=== PATIENT | female | born 1955 | race Caucasian/White ===

== ENCOUNTER 2023-03-17 05:56 | Day surgery (SDC) | payer OTHER ==
[2023-03-16 08:54] LABS: Absolute Lymphocytes (CBC) 0.9 K/uL (0.7-4.9); Hematocrit 37.3 % (36.0-45.0); Lymphocytes % 13.7 % (15.3-44.8); MCV 93.2 fL (80-100); MPV 8.3 fL (7.6-11.3)
--- NOTE | 2023-03-16 08:56 | RAD REPORT ---
EXAM DESCRIPTION: Reji Sofia (2 Views)03/16/2023 8:16 am CLINICAL HISTORY: Preop for lipoma removal COMPARISON: None FINDINGS: The lungs appear clear of acute infiltrate. The heart is normal size IMPRESSION: No acute abnormalities displayed
[2023-03-16 09:11] LABS: Potassium 3.9 mEq/L (3.5-5.1)
--- NOTE | 2023-03-16 14:36 | EKG ---
Test Date: 2023-03-16 Test Time: 08:00:08 Apartment Assistant Manager: SOCORRO MEASUREMENT RESULTS: Intervals: Rate: 72 NV: 160 QRSD: 78 QT: 412 QTc: 451 [place]: P: 79 NV: 160 QRS: 84 T: 91 INTERPRETIVE STATEMENTS: Normal sinus rhythm Nonspecific T wave abnormality Abnormal ECG No previous ECG available for comparison Electronically Signed On 03-16-23 14:35:43 CDT by Vinod Lanza
[2023-03-17] MEDS ORDERED: CEFAZOLIN SODIUM 1 GM/VIAL ONE (06:25)
[2023-03-17] MEDS ORDERED: Ringers Lactate 1,000 ML IV ONE (06:25)
[2023-03-17] MEDS ORDERED: MIDAZOLAM HCL 2 MG/2 ML INJ ONE (07:33)
[2023-03-17] MEDS ORDERED: ONDANSETRON 4 MG/2 ML VIAL ONE (07:33)
[2023-03-17] MEDS ORDERED: propofoL 200 MG/20 ML VIAL IV ONE (07:33)
[2023-03-17] MEDS ORDERED: LIDOCAINE 2% MPF 5 ML VIAL ONE (07:33)
[2023-03-17] MEDS ORDERED: FENTANYL CITR 100 MCG/2 ML ONE (07:33)
[2023-03-17] MEDS ORDERED: dexAMETHasone 4 MG/ML VIAL ONE (07:56)
[2023-03-17] MEDS ORDERED: Mastisol Adhesive Liq ONE (08:31)
[2023-03-17] MEDS ORDERED: EPHEDRINE SULF 50 MG/ML VIAL ONE (08:48)
[2023-03-17] MEDS ORDERED: KETOROLAC 30 MG/ML INJ ONE (09:25)
--- NOTE | 2023-03-17 09:48 | P.OP ---
Date of Service: 03/17/23 Preop diagnosis: Posterior neck mass, left shoulder mass, left hip mass, right leg mass, right hip masssymptomatic Postop diagnosis: Same Procedure performed: Excision posterior neck mass 4 x 6 cm with layered closure, left shoulder mass 4 x 2 cm with layered closure, left hip mass 10 x 10 cm with layered closure, right leg mass 4 x 6 cm with layered closure and right hip mass 4 x 6 cm with layered closure Surgeon: Andrey Cohn MD Urban Forester: Gabbi ROBERTS Estimated blood loss: Minimal Specimen: As above, likely lipomas Findings: As above Anesthesia: General Complications: None Drains: JONATHAN #10 flat on the left hip wound Fluids and blood products: Nonapplicable Disposition: Recovery room Operative note: Patient brought to the OR and placed in the supine position. General anesthesia begun. Patient positioned in the right lateral position. Posterior neck left hip and right medial leg prepped and draped in the usual sterile fashion. Marcaine 0.5% infiltrated locally. 15 blade used to make a 4 cm incision on the posterior neck, 8 cm incision on the left hip and 4 cm incision on the right medial upper leg. Subcutaneous tissue divided and sharp and blunt dissection utilized to excise lipomas from each wound. The size of the lipomas are as above. After excision, wound irrigated and bleeding control led cautery. Cm-Elder drain #10 flat placed in the left hip wound as it was a large cavity. This drain was secured with 3-0 nylon. Then 2-0 chromic and 3-0 chromic used to reapproximate subcutaneous tissue and close skin. Then the patient was placed in the supine position. The right anterior hip and left anterior shoulder was prepped and draped in usual sterile fashion. Marcaine 0.5% was infiltrated locally. A 4 cm incision was made with a 15 blade on both sides. Subcutaneous tissue divided. Lipomas from both sides excised and sent to pathology as specimen. Wound irrigated and bleeding controlled with cautery. 2-0 chromic and 3-0 chromic used to approximate subcutaneous tissue and close skin. Sterile dressing applied. Patient awakened and taken to recovery room in good general condition. CC: Dr. Grace office
[2023-03-17] MEDS ORDERED: HYDROCODONE/APAP 7.5/325 MG TAB PO PRN (09:51)
[2023-03-17 12:27] VITALS: O2SAT 98
[2023-03-17 12:33] VITALS: BP 146/69; TEMP 98.2
== END 2023-03-17 12:50 | disposition home or self-care (01) ==
LOC: OR 05:56
PROVIDERS: ATTEND Surgery
PROC: 0JBN0ZZ Excision of Right Lower Leg Subcutaneous Tissue and Fascia, Open Approach (ICD-10-PCS; 2023-03-17)
PROC: 0JBL0ZZ Excision of Right Upper Leg Subcutaneous Tissue and Fascia, Open Approach (ICD-10-PCS; 2023-03-17)
PROC: 0JBM0ZZ Excision of Left Upper Leg Subcutaneous Tissue and Fascia, Open Approach (ICD-10-PCS; 2023-03-17)
PROC: 0JBF0ZZ Excision of Left Upper Arm Subcutaneous Tissue and Fascia, Open Approach (ICD-10-PCS; 2023-03-17)
PROC: 0JB50ZZ Excision of Left Neck Subcutaneous Tissue and Fascia, Open Approach (ICD-10-PCS; principal; 2023-03-17 07:30)
DX: D17.0 Benign lipomatous neoplasm of skin and subcutaneous tissue of head, face and neck (principal); D17.22 Benign lipomatous neoplasm of skin and subcutaneous tissue of left arm; D17.23 Benign lipomatous neoplasm of skin and subcutaneous tissue of right leg; D17.24 Benign lipomatous neoplasm of skin and subcutaneous tissue of left leg; R22.1 Localized swelling, mass and lump, neck; R22.32 Localized swelling, mass and lump, left upper limb; R22.2 Localized swelling, mass and lump, trunk; R22.41 Localized swelling, mass and lump, right lower limb
CPT/HCPCS: 11424; 11404 ×2; 11406 ×2; 93005; 85025; 80048; 36415; 88304; 71046; J2704; J1100; J2001; J2250; J3010; J2405; J7120; J0690

== ENCOUNTER 2024-01-20 06:22 | Day surgery (SDC) | payer OTHER ==
[2024-01-16 09:07] LABS: Absolute Eosinophils 0.2 K/uL (0-0.5); Absolute Lymphocytes (CBC) 0.9 K/uL (0.7-4.9); Absolute Monocytes 0.6 K/uL (0.1-1.3); Absolute Neutrophil 2.9 K/uL (1.8-8.0); Basophils % 0.7 % (0-1.3); Eosinophils % 3.9 % (0-4.4); Hematocrit 36.8 % (36.0-45.0); Hemoglobin 12.2 g/dL (12.0-15.0); Lymphocytes % 19.8 % (15.3-44.8); MCH 30.3 pg (27.0-35.0); MCHC 33.1 g/dL (32.0-36.0); MCV 91.7 fL (80-100); MPV 8.3 fL (7.6-11.3); Monocytes % 13.2 % (3.3-12.3); Neutrophils % 62.4 % (41.7-73.7); Nucleated Red Blood Cells % 0.1 % (0-0); Platelets 220 thou/uL (152-406); RBC Red Blood Cell Count 4.01 M/uL (3.86-4.86); Red Cell Distribution Width 13.2 % (12.1-15.2)
--- NOTE | 2024-01-16 09:08 | RAD REPORT ---
EXAM DESCRIPTION: RAD - Chest Pa And Lat (2 Views) - 01/16/2024 9:02 am CLINICAL HISTORY: pre op for surgery, hypertension COMPARISON: Chest Pa And Lat (2 Views) dated 03/16/2023 FINDINGS: Lines: None. Lungs: No evidence of edema or pneumonia. Pleural: No significant pleural effusions or pneumothorax. Cardiac: The heart size is within normal limits. Mediastinum: Within normal limits. Bones: No acute fractures. Other: None IMPRESSION: No acute cardiopulmonary disease.
--- NOTE | 2024-01-17 13:31 | EKG ---
Test Date: 2024-01-16 Test Time: 08:38:39 Wetland Scientist: PREO MEASUREMENT RESULTS: Intervals: Rate: 67 NJ: 202 QRSD: 88 QT: 466 QTc: 492 [place]: P: 53 [place]: 202 QRS: 94 T: 96 INTERPRETIVE STATEMENTS: Normal sinus rhythm Rightward axis ST & T wave abnormality, consider anterior ischemia Prolonged QT Abnormal ECG Compared to ECG 03/16/2023 08:00:08 Right-axis deviation now present ST (T wave) deviation now present Possible ischemia now present Prolonged QT interval now present T-wave abnormality no longer present Electronically Signed On 01-17-24 13:28:22 CDT by Vinod Lanza
[2024-01-20] MEDS: Ringers Lactate 1,000 ML IV ONE (06:30)
[2024-01-20] MEDS ORDERED: BUPIVACAINE 0.5% PF 10 ML VIAL ONE (06:57)
[2024-01-20] MEDS ORDERED: dexAMETHasone 4 MG/ML VIAL ONE (07:22)
[2024-01-20] MEDS ORDERED: ONDANSETRON 4 MG/2 ML VIAL ONE (07:22)
[2024-01-20] MEDS ORDERED: LIDOCAINE 1% MPF 5 ML VIAL ONE (07:22)
[2024-01-20] MEDS ORDERED: propofoL 200 MG/20 ML VIAL IV ONE (07:22)
[2024-01-20] MEDS ORDERED: FENTANYL CITR 100 MCG/2 ML ONE (07:23)
[2024-01-20] MEDS ORDERED: MIDAZOLAM HCL 2 MG/2 ML INJ ONE (07:24)
[2024-01-20] MEDS: CEFAZOLIN SODIUM 2 GM/VIAL ONE (07:30)
[2024-01-20] MEDS ORDERED: Mastisol Adhesive Liq ONE (08:21)
--- NOTE | 2024-01-20 09:06 | P.OP ---
Date of Service: 01/20/24 Preop diagnosis: Left hip and left knee mass Postop diagnosis: Same Procedure performed: Excision left hip mass 12 x 9 cm with layered closure, excision left knee mass 4 x 4 cm with layered closure Surgeon: Andrey Cohn MD Research Assistant Member: Gabbi ROBERTS Estimated blood loss: Minimal Specimen: Left hip and left knee mass Findings: Likely lipoma Anesthesia: General Complications: None Drains: JONATHAN #10 flat and the left hip wound Fluids and blood products: Nonapplicable Disposition: Recovery room Operative note: Patient brought to the OR and placed in supine position. General anesthesia began. Patient placed in the right lateral position. Patient's left hip prepped and draped in the usual sterile fashion. Marcaine 0. 5% infiltrated locally for postop pain control. 15 blade used to make a 6 cm transverse incision over the palpable mass. Subcutaneous tissue divided. Bleeding controlled with cautery. Deep to the subcutaneous tissue a large lipoma identified. Sharp and blunt dissection used to excise the lipoma. Bleeding controlled with cautery. Entire mass excised. It was approximately 12 x 9 cm. Wound irrigated and bleeding controlled with cautery. Then, Cm- Elder drain 10 flat placed in the wound and secured with 3-0 nylon. 2-0 chromic and 3-0 chromic used to close the subcutaneous space as well as the skin. Sterile dressing applied. Patient placed in the supine position and the legs were frog-legged. Medial left knee was prepped and draped in the usual sterile fashion. Marcaine 0.5% was infiltrated locally. 15 blade used to make a 4 cm incision over the medial knee. Subcutaneous tissue divided. Bleeding controlled cautery. Deep to the subcutaneous tissue approximately a 4 x 4 cm lipoma identified and excised. Wound irrigated and bleeding controlled cautery. 2-0 chromic used to reapproximate the subcutaneous tissue. 3-0 chromic used to close skin. Sterile dressing applied. Patient awakened and taken to recovery room in good general condition. CC: Dr. Grace' office
[2024-01-20] MEDS ORDERED: HYDROCODONE/APAP 5/325 MG TAB PO PRN (09:09)
[2024-01-20 10:01] VITALS: O2SAT 95
[2024-01-20 11:11] VITALS: BP 127/55; TEMP 98
== END 2024-01-20 10:34 | disposition home or self-care (01) ==
LOC: OR 06:22
PROVIDERS: ATTEND Surgery
PROC: 0JBM0ZZ Excision of Left Upper Leg Subcutaneous Tissue and Fascia, Open Approach (ICD-10-PCS; 2024-01-20)
PROC: 0JBP0ZZ Excision of Left Lower Leg Subcutaneous Tissue and Fascia, Open Approach (ICD-10-PCS; principal; 2024-01-20 07:30)
DX: D17.24 Benign lipomatous neoplasm of skin and subcutaneous tissue of left leg (principal); I10 Essential (primary) hypertension; E78.5 Hyperlipidemia, unspecified; F32.A Depression, unspecified; F41.9 Anxiety disorder, unspecified
CPT/HCPCS: 93005; 85025; 80048; 36415 ×2; 84132; 88304; 71046; 11406; 11404; J2704; J1100; J2001; J2250; J3010; J2405; J7120; 88311